=== PATIENT | female | born 1950 | race Caucasian/White ===

== ENCOUNTER → 2020-11-23 12:06 | Outpatient (CLI) | payer MEDICARE, OTHER, SELFPAY ==
--- NOTE | 2020-11-23 | DI.MRI.S_ITS ---
PROCEDURE: MR KNEE RT WO CON INDICATIONS: INTERNAL DERANGEMENT OF RIGHT KNEE TECHNIQUE: Noncontrast sagittal PD fast spin echo and T2 fast spin echo with fat saturation, sagittal 3-D FLASH with fat saturation; coronal T1 spin echo and PD fast spin echo with fat saturation, and axial PD fast spin echo with fat saturation through the knee. COMPARISON: [facility], MR, LOWER EXTREM. JNT WO CONTRAST, 08/12/2009, 11:25. FINDINGS: Image quality: Excellent. Menisci: There is a horizontal oblique signal at the junction of the posterior horn and body of the medial meniscus extending to the middle third of the tibial articular surface that is less specific in the postsurgical setting and may represent fibrovascular granulation tissue or a small tear. There is a mildly diminutive appearance of the medial meniscal body. The lateral meniscus is intact. Cruciate ligaments: There is chronic complete tearing of the anterior cruciate ligament. The posterior cruciate ligament is intact. Medial structures: The medial collateral ligament appears intact. The semimembranosus tendon insertions and meniscocapsular junction appear intact. Visualized portions of the pes anserinus tendons appear normal. No abnormal bursal fluid. Lateral structures: The lateral collateral ligament, long and short heads of the biceps femoris tendon appear intact. The popliteus tendon appears intact. No signs of posterolateral corner injury. Iliotibial band appears normal. Anterior structures: There is borderline patella alisha. The distal quadriceps tendon is intact. No femoral trochlear dysplasia or ventral trochlear prominence. Mild scarring is seen in Hoffa's fat pad. Bones and cartilage: Trabecular bone injury is seen at the posterior aspect of the lateral tibial plateau with mild depression of the far posterior articular surface, compatible with a subacute to chronic mildly impacted fracture. There is mild partial-thickness cartilage thinning in the weight-bearing portion of the medial femorotibial compartment. High-grade and likely full-thickness cartilage loss is seen in the posterior portion of the lateral tibial plateau adjacent to the impaction injury. No focal cartilage defect is seen in the anterior compartment. Joint space: A small joint effusion is present. There is a trace medial popliteal cyst. A small lobulated ganglion cyst is seen adjacent to the origin of the lateral head of the gastrocnemius muscle. IMPRESSION: 1. Mildly impacted, likely subacute fracture of the posterior aspect of the lateral tibial plateau with mild surrounding trabecular bone injury. 2. 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 3. Probable partial medial meniscectomy with linear hyperintense signal at the junction of the posterior horn and body that may represent fibrovascular granulation tissue or a small horizontal oblique tear. 4. Small joint effusion. Dictated by: Sean Killian M.D. on 11/23/2020 at 12:50 Approved by: Sean Killian M.D. on 11/23/2020 at 13:03
== END ==
PROVIDERS: Family Provider Family Medicine; PCP Family Medicine; Referring Provider Family Medicine; Visit Provider Family Medicine
DX: M23.91 Unspecified internal derangement of right knee (principal); S82.141A Displaced bicondylar fracture of right tibia, initial encounter for closed fracture; S83.511A Sprain of anterior cruciate ligament of right knee, initial encounter; M25.461 Effusion, right knee; X58.XXXA Exposure to other specified factors, initial encounter
CPT/HCPCS: 73721

== ENCOUNTER → 2022-03-21 15:59 | Outpatient (CLI) | payer MEDICARE, OTHER, SELFPAY ==
--- NOTE | 2022-03-21 16:02 | DI.MRI.S_ITS ---
PROCEDURE: MR HIP LT WO CON INDICATIONS: Pain in left hip. Left leg weakness TECHNIQUE: Noncontrast coronal T1 spin echo and STIR through the bony pelvis. Coronal and axial T2 fast spin echo with fat saturation, sagittal T1 spin echo, and oblique axial T2 fast spin echo with fat saturation through the hip. COMPARISON: None. FINDINGS: Image quality: Excellent. Bones and joints: Moderate left hip joint osteoarthritic changes are seen with significant superior joint space narrowing, extensive subchondral sclerosis and small cyst formation and lateral marginal osteophyte formation . Mild prominence of right superior femoral head neck junction is noted with subcortical cystic area concerning for cam type femoral acetabular impingement. No intraosseous lesions or fractures. No avascular necrosis of the femoral heads. The visualized lower lumbar spine appears normally aligned. Tendons and ligaments: The gluteus medius and minimus tendinosis at their insertion on greater trochanter is seen, without associated muscle atrophy. The nearby proximal iliotibial band also appears intact. The iliopsoas tendon appears intact, without adjacent bursal fluid collections or evidence for impingement syndrome. The origin of the hamstring tendon is intact at the ischial tuberosity, as well as the associated sacrotuberous ligament. The straight and reflected heads of the rectus femoris muscle origin appear intact, as well as the conjoint tendon. The ligamentum teres appears intact where visualized. Labrum and cartilage: Diffuse thinning of articulating cartilages in femoral head is seen. Extensive superior and anterior left hip labral tear is noted with adjacent perilabral cyst measures up to 1.1 x 0.6 cm in size. The alpha angle of the femur is within normal limits at less than 55 degrees. Soft tissues: Visualized muscles demonstrate normal bulk and internal signal. Quadratus femoris muscle demonstrates no internal edema to suggest ischiofemoral impingement. The proximal sciatic neurovascular bundle appears normal adjacent to the hamstring tendons. No free pelvic fluid. Bladder wall thickness is normal. Genitourinary structures and bowel loops appear normal where visualized. IMPRESSION: 1. Moderate left hip joint osteoarthritis. No fracture or dislocation. No evidence of avascular necrosis of femoral head. 2. Tendinosis involving distal left gluteus medius and minimus at their insertion on greater trochanter. No other muscle or tendon signal abnormality. 3. Suggestion of extensive superior anterior left hip labral tear with adjacent perilabral cyst as above. Dictated by: Baldo Palafox M.D. on 03/21/2022 at 17:09 Approved by: Baldo Palafox M.D. on 03/21/2022 at 17:13
== END ==
PROVIDERS: Family Provider Family Medicine; PCP Family Medicine; Referring Provider Family Medicine; Visit Provider Family Medicine
DX: S73.192A Other sprain of left hip, initial encounter (principal); M16.12 Unilateral primary osteoarthritis, left hip; M25.552 Pain in left hip
CPT/HCPCS: 73721

== ENCOUNTER → 2022-07-11 11:11 | Outpatient (CLI) | payer MEDICARE, OTHER, SELFPAY ==
[2022-07-11 11:47] LABS: COVID19 -Nasal RAPID Negative (Negative)
== END ==
PROVIDERS: Family Provider Family Medicine; PCP Family Medicine; Referring Provider Orthopaedic Surgery; Visit Provider Orthopaedic Surgery
DX: Z20.822 Contact with and (suspected) exposure to COVID-19 (principal)
CPT/HCPCS: 36415; 87635; C9803

== ENCOUNTER 2022-07-12 06:00 | Day surgery (SDC) | payer MEDICARE, OTHER, SELFPAY ==
[2022-07-04 08:57] VITALS: BMI 21.4
[2022-07-12] VITALS (15 sets, daily range): BP systolic 90–141; BP diastolic 56–78; PULSE 57–80; RESP 16–26; TEMP 35.1–36.6; O2SAT 97–100; BMI 21.4
--- NOTE | 2022-07-12 06:41 | DI.RAD.S_ITS ---
PROCEDURE: XR HIP W PEL IF DONE LT 2V INDICATIONS: prosthesis placement TECHNIQUE: 4 low resolution intraoperative fluoroscopic spot films were obtained COMPARISON: [facility], [place], XR HIP W PEL IF DONE LT 2V, 07/12/2022, 10:51. [facility] ([place]), [place], XR HIP W PEL IF DONE BHARATH 3TO4V, 12/16/2021, 15:04. FINDINGS: Low resolution intraoperative fluoroscopic spot films show total left hip arthroplasty components in expected position IMPRESSION: Fluoroscopic guidance Approved by: Rufus Gerber M.D. on 07/12/2022 at 11:21
[2022-07-12] MEDS: ACETAMINOPHEN 325 MG TABLET 975 MG PO (07:05)
[2022-07-12] MEDS: PREGABALIN 75 MG CAPSULE PO (07:10)
[2022-07-12] MEDS: CELECOXIB 200 MG CAPSULE PO (07:10)
[2022-07-12] MEDS: VANCOMYCIN 1,000 MG/200 ML PIGGYBACK 200 MG IV (07:11)
--- NOTE | 2022-07-12 07:41 | P.OP_ITS ---
Procedure & Clinicians Procedure: Left total hip arthroplasty anterior approach Same procedure as scheduled: Yes Indications: The patient has had progressively worsening left hip pain with radiographic changes consistent with arthritis. Non-operative management has failed and the patient has requested total hip replacement. The risks, benefits and alternatives to surgery were discussed with the patient prior to proceeding. Risks discussed included, but were not limited to, failure to relieve pain, leg length discrepancy, dislocation, stiffness, infection, nerve damage, deep venous thrombosis, pulmonary embolism, stroke, coma, heart attack, permanent paralysis and , as well as the potential need for eventual revision of the prosthetic. Surgeon: Darcy Coelho Supervisor In Charge: Jossy Mercado Anesthesia Type: Spinal Operative Notes Findings: Severe left hip osteoarthritis, adequate bone and adequate stability Closure Type: primary Specimen(s): none sent Prosthetic devices, grafts, tissues, transplants, or devices: Coelho and nephew R3 54 mm cup, anthology standard offset size 4, 36 x -3 Oxinium head, neutral poly liner Estimated Blood Loss (mL): 250 Blood products transfused: none Procedure in detail: The patient was brought to the operating room. Patient was carefully positioned in the supine position. Time-out was performed and antibiotics were given. Anesthesia was induced. She was positioned in the on the table in order to allow hyperextension of the hip. The left lower extremity was prepped and draped in a standard sterile fashion. An anterior left hip incision was made 1 fingerbreadth lateral to the anterior superior iliac spine and extended distally towards the greater trochanter. Dissection was carried out through skin and subcutaneous tissues. Superficial hemostasis was achieved. The fascia over the tensor fascia juwan was defined and incised with a knife. Two Allis clamps were used to grasp the fascia. Tensor fascia juwan was retracted laterally. A gelpi retractor was placed. Dissection was carried out down along the neck. The circumflex vessels were carefully identified and cauterized with the Aqua Mantis. There was good visualization of the femoral neck. A Cobra was placed superior to the neck and the gluteus fibers were carefully stripped from that superior aspect of the capsule. A 2nd retractor was placed along the inferior aspect of the neck. The rectus insertion along the capsule was partially released. A 3rd retractor that was then gently placed over the rim of the acetabulum under the rectus. Capsule was carefully incised and released from the intertrochanteric line circumferentially superior to the mid sagittal line and inferiorly to the mid sagittal line until the lesser trochanter was palpable. A tag stitch was placed both in the superior and inferior limb of the capsular insertion. Along the acetabulum capsule was also released up to the mid sagittal 12:00 position. A portion of the labrum was resected. A saw was used to perform an osteotomy at the level of the intertrochanteric line and the junction of the superior femoral neck leaving approximately 1 finger breath of residual inferior neck above the lesser trochanter. A 2nd cut was made along the femoral neck at the base of the head and a napkin ring of neck was removed. Corkscrew was placed in the femoral head and the head was removed without difficulty. Retractors were then repositioned around the acetabulum. Residual labrum was resected and additional osteophytes were removed . A reamer that was 4 mm below the templated size was placed by hand in the acetabulum and it was reamed to centralize the acetabulum. It was then reamed up to 2 under the templated size and fluoroscopy was brought in to confirm the position of the reaming and depth of reaming. I reamed 1 under the anticipated size. A trial cup was placed and noted that it was appropriately sized and fluoroscopy confirmed position and depth. The component was open and inserted without difficulty fluoroscopic imaging was used to confirm that the cup had been adequately seated and was well positioned. It was further stabilized with a screw. Neutral poly liner was placed. The cup was tested and noted to be stable. Attention was then directed to the femur. The femur was gently hyperextended additional capsular release was performed as needed in order to allow adequate visualization of the proximal femur with elevation of the femur. Patient was placed in a hyperextended slightly adducted position with maximum external rotation. Box osteotome was used to check for any residual neck as well as sclerotic bone along the trochanter. [place] pepper was placed in the femur. Additional broaching was performed. Canal finder was used to determine the alignment of the canal and position. Size 1 broach was placed. The canal was then appropriately broached up to the templated size as long as there was adequ ate stability of the broach and serial advancement of the broach without excessive impingement. Specific attention was directed at avoiding varus attempting to direct the distal aspect of the broach more anteriorly and avoiding excessive anteversion. Trial reduction showed acceptable range of motion, good stability, no posterior impingement, protestant of leg length and appropriate lateral shuck. I also hyperflexed the hip and checked that there was no impingement anteriorly and there was good stability with flexion, adduction and internal rotation. Marcaine and Exparel were injected. The stem was placed without difficulty. Repeat trial reduction and x-ray showed acceptable overall position, length, and no evidence of the femoral fracture. Final head was placed. Wound was meticulous ly irrigated with normal saline. The hip was reduced and additional Exparel and Marcaine were injected. The capsule was closed with interrupted nonabsorbable sutures. The fascia of the tensor was closed with interrupted and running Vicryl. No drain was placed. Any tensor fascia ujwan muscle that appeared to be contused or injured which was a minimal amount was carefully resected. Capsule around the tensor was injected with Exparel and Marcaine. The skin was closed with barbed stitches for the subcutaneous tissue and skin. We also used surgical glue. The wound was dressed sterilely. Brief Betadine soak was also used and was meticulously irrigated with normal saline. Patient was transferred to recovery room in satisfactory condition. Complications: none Post-operative Condition: stable Disposition: Acute Care Plan for aftercare: The patient will be maintained on a standard total hip replacement protocol with weight bearing as tolerated and anterior hip precautions. The patient will receive Aspirin and sequential compression devices for DVT prophylaxis. The patient will be discharged home when safe for the home environment.
--- NOTE | 2022-07-12 07:41 | PM.PREOP ---
Pre-operative Note COVID-19 COVID-19 status: Negative Interval Note History & Physical reviewed/Exam performed by Physician: Yes Changes to H&P: No
[2022-07-12] MEDS: CEFAZOLIN 2 GM/100 ML PREMIX 100 ML IV ×3 (07:50→23:58)
[2022-07-12] MEDS: TRANEXAMIC ACID 1,000 MG VIAL 1000 MG INJ ×2 (08:15→10:02)
--- NOTE | 2022-07-12 08:31 | SUR.OPER ---
Supine on padded [place] table with bilateral legs secured in padded positioning boots and suspended in positioning spars, operative leg in traction per surgeon. Head on one pillow. Arm on non-operative side secured on padded armboard <90 degrees abduction. Arm on operative side padded and resting across chest then secured with tape over sheet. Padded perineal post in place per surgeon.
[2022-07-12] MEDS: BUPIVACAINE LIPOSOME 266 MG/20 ML VIAL INJ (08:37)
[2022-07-12] MEDS: BUPIVACAINE 0.5% (PF) VIAL 30 ML INJ (08:39)
[2022-07-12] MEDS: BUPIVACAINE 0.25% (PF) 60 ML, EPINEPHrine 0.3 MG INJ (08:40)
[2022-07-12] MEDS: LACTATED RINGERS 1,000 ML 42 ML IV (10:02)
[2022-07-12] MEDS: HYDROMORPHONE 2 MG INJ IV ×2 (10:46→11:03)
[2022-07-12] MEDS: OXYCODONE IR 5 MG TABLET PO ×3 (11:05→18:36)
--- NOTE | 2022-07-12 11:30 | DI.RAD.S_ITS ---
PROCEDURE: XR HIP W PEL IF DONE LT 2V INDICATIONS: LEFT ANTERIOR TOTAL HIP TECHNIQUE: 2 view(s) of the hip acquired. COMPARISON: [facility], [place], XR HIP W PEL IF DONE LT 2V, 07/12/2022, 9:31. [facility] ([place]), CR, XR HIP W PEL IF DONE BHARATH 3TO4V, 12/16/2021, 15:04. FINDINGS: Bones: Patient is status post left hip arthroplasty, with hardware components in expected positions. The hip joint appears congruent. The visualized bony structures appear intact. Soft tissues: Overlying postoperative changes are noted. No suspicious soft tissue densities. IMPRESSION: Status post left hip arthroplasty. Dictated by: Unique Bullard M.D. on 07/12/2022 at 12:52 Approved by: Unique Bullard M.D. on 07/12/2022 at 12:52
--- NOTE | 2022-07-12 11:33 | SUR.PHASEI ---
Report called to JARROD Jeter.
[2022-07-12] MEDS: LACTATED RINGERS 1,000 ML 125 ML IV ×2 (12:25→20:32)
[2022-07-12] MEDS: ONDANSETRON 4 MG ODT PO (12:28)
[2022-07-12] MEDS: ACETAMINOPHEN 325 MG TABLET 650 MG PO ×3 (12:28→23:58)
[2022-07-12] MEDS: IBUPROFEN 400 MG TABLET PO ×3 (12:54→23:58)
--- NOTE | 2022-07-12 14:40 | PT.IIE ---
Current Diagnoses Unilateral primary osteoarthritis, left hip (07/12/22) Surgery Performed Operation Date: 07/12/22 07:45 Actual Procedures p Total Hip Arthroplasty/Anterior Approach(Left) - Darcy Coelho MD Surgical History (Last Updated 07/04/22 @ 09:14 by Quin Espinoza, RN) History of colonoscopy with polypectomy History of orthopedic surgery (2004) Hx of arthroscopy of right knee (2008) Hx of discectomy (1994) Hx of foot surgery (1998) Hx of foot surgery (2012) Hx of foot surgery (2017) Medical History (Last Reviewed 07/12/22 @ 06:59 by Vineet Santa RN) Breast cancer screening Encounter for hepatitis C screening test for low risk patient HLD (hyperlipidemia) HTN (hypertension) Osteoarthritis Post-menopausal atrophic vaginitis Physical Therapy Inpatient Evaluation/Re-Eval M1 PT/OT-IP Prior Functional Status Start: 07/12/22 15:31 Freq: NEEDED Status: Active Protocol: Document 07/12/22 14:40 AB (Rec: 07/12/22 15:[email or web address] Medical Review Prior Functional Status Medical History Reviewed Yes Communication able to make needs known Mobility and Gait pt stated that she is independent with all mobilities and ambulation wihtout AD Social History Household Members spouse Living Arrangements House Number of Floors (Floors) One Floor Number of Stairs To Enter/Railing? 2 steps without rails to enter Home Environment Standard Height Toilet,Tub/ Shower Home Equipment Front Wheel Walker,Straight Cane,Raised Toilet Seat w/ Armrests,Shower Seat without Backrest,Hand Held Shower,Grab Bars In Shower M2 PT-IP Current Condition Start: 07/12/22 15:31 Freq: NEEDED Status: Active Protocol: Document 07/12/22 14:40 AB (Rec: 07/12/22 15:43 AB [id number]) Physical Therapy Current Condition Current Condition Evaluation Date 07/12/22 Treatment Diagnosis s/p L TABITHA anterior approach; difficulty in walking Onset Date 07/12/22 M3 PT-IP Subjective Start: 07/12/22 15:31 Freq: NEEDED Status: Active Protocol: Document 07/12/22 14:40 AB (Rec: 07/12/22 15:43 AB [id number]) Subjective Physical Therapy Visit Type Type Initial Evaluation Visit Start Time 14:40 Visit Stop Time 15:30 Total Visit Minutes 50 Number of FAMILY LAW ATTORNEY Visits 0 Physical Therapy Visit Comments Patient Comments pt is agreeable to do PT; c/o nausea M4 PT-IP Mobility and Gait Start: 07/12/22 15:31 Freq: NEEDED Status: Active Protocol: Document 07/12/22 14:40 AB (Rec: 07/12/22 15:43 AB [id number]) PT-Bed Mobility Assessment Supine to Sit Supine to Sit Standby Assistance Sit to Supine Sit to Supine Standby Assistance PT-Transfer Assessment Sit to and From Stand Sit to and from Stand Contact Guard Assistance, Minimal Assistance,1 Person Assistance,Use of Upper Extremities Equipment Transfer Assistive Device Gait Belt,Front Wheeled Walker Orthotic/Prosthetic Devices or Brace: No Transfers Transfer Destination Bed Transfer Technique Stand Step Pivot Transfer Ability Level of Assist Contact Guard Assistance, Minimal Assistance,1 Person Assistance,Use of Upper Extremities Comments Mobility Comments pt c/o nausea with (+) emesis. nurse aware. BP: 136/68. nurse gave pt medication for nausea. educated pt on anterior hip precautions and pt able to recall. completed supine to sit SBA. able to sit on EOB SBA. completed sit to stand CGA to min A and ambulated in room using FWW ~ 40 ft CGA to min A. pt requested to use the toilet but wants to use bedside commode instead due to c/o nausea. positioned bedside commode. assisted with brief management. completed sit to stand from bedside commode CGA to min A and cues. pt requested to go back to bed and completed step transfer to bed using fWW CGA. completed sit to supine SBA. positioned pt in bed. call light and table placed within reach. caregiver training set up tomorrow at 9 am. Gait Assessment Gait Gait Assistance Required: Contact Guard Assist,Minimum Assistance,1 Person Assist Distance (Feet) 40 Able to Maintain Weight Bearing Status Yes During Gait Assistive Devices Assistive Device Gait Belt,Front Wheeled Walker Orthotic/Prosthetic Devices or Brace: No Gait Deviations General Gait Pattern Antalgic,Decreased Stride Length,Decreased Feet Clearance,Step-to Gait Factors Limiting Gait Function Factors Limiting Gait Function Decreased Activity Tolerance, Decreased Strength,Limited Range of Motion,Pain,Poor Balance,Poor Safety Awareness PT-Balance Assessment Sitting Balance and Reactions Static Sitting Balance Ability Good Dynamic Sitting Balance Ability Good Standing Balance and Reactions Static Standing Balance Ability Fair Dynamic Standing Balance Ability Fair Device Used FWW M5 PT-IP Objective Assessments Start: 07/12/22 15:31 Freq: NEEDED Status: Active Protocol: Document 07/12/22 14:40 AB (Rec: 07/12/22 15:43 AB [email or web address]) Orientation Orientation/Cognition Level of Alertness Alert Orientation Name,Place,Situation Language Function Ability No Deficits Noted Safety Awareness Decreased Safety Awareness Gross Range of Motion Lower Extremity ROM Assessment Within Functional Limits Strength Lower Extremity Strength Assessment Within Functional Limits Coordination Assessment Gross Coordination Gross Coordination WNL Sensation Assessment Sensation Gross Sensation WNL Muscle Tone Muscle Tone WNL Yes M6 PT-IP Treatment Start: 07/12/22 15:31 Freq: NEEDED Status: Active Protocol: Document 07/12/22 14:40 AB (Rec: 07/12/22 15:43 AB [email or web address]) Physical Therapy Treatment Education Education Provided Precautions M7 PT-IP Assessment and Plan Start: 07/12/22 15:31 Freq: NEEDED Status: Active Protocol: Document 07/12/22 14:40 AB (Rec: 07/12/22 15:43 AB [email or web address]) PT Summary Assessment and Plan Potential Rehabilitation Potential Good Status of Condition at Evaluation Evolving Summary Impairments Pain,ROM,Strength,Balance, Coordination,Sensation,Tone, Cognition,Bed Mobility, Transfers,Gait,Activity Tolerance Assessment Summary pt s/p L TABITHA anterior approach and just had surgery this morning. pt with c/o nausea affecting activity tolerance. BP: 136/68. pt requiring CGA to min A with mobility using FWW. caregiver training set up for tomorrow at 9 am. will continue to assess progress. Goals Bed Mobility Goal Independent Transfer Goal Independent,Front Wheeled Walker Gait Goal Independent,Front Wheel Walker Gait Distance 300 Other Goals up/down 2 steps using SPC/CHIEF PROGRAM OFFICER CGA Days to Meet Goals 5 Frequency of Treatment Frequency Of Treatment Twice a Day Treatment Plan Physical Therapy Treatment Plan Bed Mobility Training,Transfer Training,Gait Training, Therapeutic Exercise,Balance Retraining,Post Op Education, Discharge Planning,Hot or Cold Pack,Neuromuscular Re-ed, Coordination Retraining,Manual Therapy Other Recommendations and Next Treatment Caregiver trainin07/13/22 @ [facility] 9 am Precautions Anterior Hip Precautions No Hip Extension,No Hip External Rotation Weight Bearing Status Weight Bearing Status Weight Bear as Tolerated Allowed Weight Bearing Amount (enter % LLE WBAT or #) (%) Recommendations To Nursing Amount of Assist Needed 1 Person Assist Discharge Recommendations PT Discharge Recommendations Home with Assistance, Outpatient PT Transportation Needs at Discharge Private Vehicle
[2022-07-12] MEDS: ONDANSETRON 4 MG/2 ML INJ IV ×2 (14:54→18:29)
--- NOTE | 2022-07-12 19:46 | PC.NURSE ---
Pt arrived from PACU this a.m. at 1145. She is A&Ox3, VSS, afebrile. She reports mild nausea, and although given prn zofran with medications, she has x2 episodes of emesis this evening. She is however able to work with PT and tolerate a small amount of dinner. She reports pain to L hip tolerable at 4/10 this shift. She has +CMS to BLE's and full sensation. Continuous monitoring. Aquacel to L hip C/D/I, LR at 125ml/hr.
[2022-07-12] MEDS: DOCUSATE 100 MG CAPSULE PO (20:29)
[2022-07-12] MEDS: ASPIRIN EC 81 MG TABLET PO (20:29)
[2022-07-12] MEDS: ATORVASTATIN 20 MG TABLET 10 MG PO (20:29)
[2022-07-12] MEDS: VALSARTAN 80 MG TABLET 40 MG PO (20:30)
--- NOTE | 2022-07-12 22:14 | PC.NURSE ---
Patient is alert and oriented. Breath sounds CTA with RA sat of 99%. HRR. Has had post-op nausea and medicated around 1830 with Zofran and denied nausea at time of assessment. BT present but has not yet passed flatus. Voiding on BSC and denies dysuria. Is able to move herself in bed. Assisted to BSC with walker and 1 assist; adheres to anterior hip precautions. CMS is intact except for not having full motion in left leg. Aquacel dressing is CDI. Wearing bilateral calf SCD's. States pain is 3-4/10 and tolerable. Fall risk score is moderate and bed alarm is activated.
[2022-07-13 01:00] VITALS: BP 101/51; PULSE 61; RESP 18; TEMP 36.2; O2SAT 95
[2022-07-13] MEDS: LACTATED RINGERS 1,000 ML 125 ML IV (04:48)
[2022-07-13 05:00] VITALS: BP 95/46; PULSE 67; RESP 18; TEMP 36.4; O2SAT 99
[2022-07-13 05:42] LABS: Hematocrit 30.6 % (36-46); Hemoglobin 10.4 g/dL (12.0-16.0)
[2022-07-13] MEDS: IBUPROFEN 400 MG TABLET PO ×2 (06:11→11:18)
[2022-07-13] MEDS: ACETAMINOPHEN 325 MG TABLET 650 MG PO ×2 (06:11→11:18)
--- NOTE | 2022-07-13 07:36 | PM.DS.1 ---
History of Present Illness History of Present Illness Date Patient Seen: 07/13/22 Time Patient Seen: 07:36 Chief complaint: Left total Hip Athroplasty/ Anterior Approach Narrative: Procedure & Clinicians Procedure: Left total hip arthroplasty anterior approach Same procedure as scheduled: Yes Indications: The patient has had progressively worsening left hip pain with radiographic changes consistent with arthritis. Non-operative management has failed and the patient has requested total hip replacement. The risks, benefits and alternatives to surgery were discussed with the patient prior to proceeding. Risks discussed included, but were not limited to, failure to relieve pain, leg length discrepancy, dislocation, stiffness, infection, nerve damage, deep venous thrombosis, pulmonary embolism, stroke, coma, heart attack, permanent paralysis and , as well as the potential need for eventual revision of the prosthetic. Surgeon: Darcy Coelho Garnett Machine Operator Helper: Jossy Mercado Anesthesia Type: Spinal Operative Notes Findings: Severe left hip osteoarthritis, adequate bone and adequate stability Closure Type: primary Specimen(s): none sent Prosthetic devices, grafts, tissues, transplants, or devices: Coelho and nephew R3 54 mm cup, anthology standard offset size 4, 36 x -3 Oxinium head, neutral poly liner Estimated Blood Loss (mL): 250 Blood products transfused: none Discharge Providers Provider Discharge Date: 07/13/22 Primary care physician: Josie Elizondo MD Consults: 07/12/22 06:41 Consult to Anesthesiology Routine Comment: Consulting Provider: Anesthesiologist Reason for consultation: Regional block for post operative pain control 07/12/22 11:58 Consult to Discharge Planning Routine Comment: Consult to Physical Therapy Evaluate & Treat Comment: Physician Instructions: post op TABITHA protocol Consult to Respiratory Therapy Evaluate & Treat Comment: Physician Instructions: Evaluate and treat Discharge provider: Shey Alfaro PA-C Summary Hospital Course Discharge Diagnosis: s/p L TABITHA Hospital Course: Ms Marcial's hospital course was unremarkable. On POD# 1, she was feeling well and wanted to go home. She was eating and voiding without difficulty. She was evaluated by PT prior to discharge. Exam Vital Signs (past 8 hours): - 07/13/22 01:00 07/13/22 05:00 Temperature 97.1 F L 97.6 F Pulse Rate 61 67 Respiratory Rate 18 18 Blood Pressure 101/51 L 95/46 L Pulse Oximetry 95 99 Oxygen Flow Rate 0 0 Oxygen Delivery Method Room Air Oxygen Flow Rate 0 Narrative Exam Narrative: 5/5 strength in hip flexors, quadriceps, hamstrings, DF, PF, EHL on left. Sensation to light touch intact in BLE. Calves soft, compressible, nontender and without palpable cords or masses. Objective Labs Result Diagrams: 07/13/22 04:40 Labs: Laboratory Results - last 24 hr 07/13/22 04:40 Hgb 10.4 L Hct 30.6 L PFSH Medical History Breast cancer screening Encounter for hepatitis C screening test for low risk patient HLD (hyperlipidemia) HTN (hypertension) Osteoarthritis Post-menopausal atrophic vaginitis Surgical History (Updated 07/13/22 @ 07:39 by Shey Alfaro PASundayC) History of colonoscopy with polypectomy History of orthopedic surgery (2004) Hx of arthroscopy of right knee (2008) Hx of discectomy (1994) Hx of foot surgery (1998) Hx of foot surgery (2012) Hx of foot surgery (2017) Social History household members: spouse Smoking Status: Never smoker alcohol intake: current Discharge Assessment & Plan Assessment and Plan Assessment: s/p left total hip arthoplasty, anterior approach Plan of Treatment: D/c home. WBAT LLE, anterior hip precautions. Multimodal pain control, ASA 81mg BID x 6 weeks for VTE prophylaxis. Discharge Plan Discharge Plan Patient Disposition: Home Discharge orders & Medications Discharge Orders: Discharge (Order); Ordered 07/13/22 Ordered By: Shey Alfaro Prescriptions: New aspirin 81 mg Tablet,Delayed Release (Dr/Ec) 81 mg PO BID Qty: 90 0RF docusate sodium 100 mg Capsule 100 mg PO BID Qty: 60 2RF ibuprofen 400 mg Tablet 400 mg PO Q6HR Qty: 120 0RF oxycodone 5 mg Tablet 5 mg PO Q4-6H PRN (Reason: pain, severe) Qty: 60 0RF Continued acetaminophen 500 mg Tablet 1,000 mg PO Q6H PRN (Reason: Pain) estradiol 10 mcg tablet 10 mcg vaginal .1XW multivitamin Tablet 1 tab PO DAILY triamcinolone acetonide 0.1 % ointment 1 applic topical DAILY PRN (Reason: Skin Irritation) valsartan 40 mg tablet 40 mg PO BEDTIME atorvastatin 10 mg tablet 10 mg PO DAILY Follow up/Referrals: Josie Elizondo MD [Primary Care Provider] - Darcy Coelho MD [Physician] - As previously scheduled (Follow up w/ Dr Coelho on 07/27/2022 @ 2:00 pm at [facility] office in [place].) Diet/Activity/Treatments Diet: Diet as Tolerated Activity: WBAT to left leg. Anterior hip precautions. Cold/Heat Therapy: Ice to hip as needed for pain. Skin/Wound/Dressing Care Report to your healthcare provider any signs of infection, such as:: chills, fever, night sweats, unusual drainage and unusual redness Dressing: May shower. Leave Aquacel dressing in place until follow up appointment. No bathing or otherwise soaking incision. Visit Report/Discharge Packet Instructions: DI for Hip Replacement, Oxycodone Stand Alone Forms: Surgery Discharge Discharge Data Primary Care Provider: Josie Elizondo Attending Provider: Darcy Coelho
[2022-07-13] MEDS: OXYCODONE IR 5 MG TABLET PO (09:01)
[2022-07-13] MEDS: MULTIVITAMIN 1 TABLET 1 TAB PO (09:01)
[2022-07-13] MEDS: DOCUSATE 100 MG CAPSULE PO (09:01)
[2022-07-13] MEDS: polyethylene glycoL 3350 17 GM POWD.PACK PO (09:03)
[2022-07-13 09:05] VITALS: BP 108/49; PULSE 63; RESP 17; TEMP 36.3; O2SAT 100
--- NOTE | 2022-07-13 09:12 | CM.DANOTE ---
DCP Assessment: Payor: Medicare & [employer] PCP: Josie Elizondo MD Pt is a 72 y.o. F who presented to the hospital for a planned left hip surgery on 07/12/22. Pt tolerated surgery with no complications. Pt admitted to the floor for further management and evaluation of surgical procedure. DCP met with pt this morning to discuss discharge planning needs. Pt sitting up in the bed and spouse, Easton, at the bedside. Pt states she lives in a single story house on [facility] with her . Pt states that she is independent at baseline and does not use any DMEs but owns a walker. Pt states that she still drives POV but wont be driving following surgery recovery. Pt denies home health use in the past. Pt does not think she needs any resources at this time. Pt is to have caregiver training @ 0900 this morning and if cleared, she can discharge home. Pt requesting priority ferry pass as she [place] on [address]. Pt wanting to catch the 1220 ferry if she [place]. DCP does not identify any discharge needs at this time. White board updated and will continue to monitor. DCP verbalized to the director of front office to start paperwork for priority ferry pass. DCP talked with PT and asked if once cleared to let the director of front office know so that they could send the paperwork to the ferry. P: Pt to discharge home today via spouse POV if cleared by PT caregiver training. [place] pass initiated. Bertha Maguire RN/KEMI Discharge Planning/Care Management CM Discharge Assessment Start: 07/13/22 09:07 Freq: Status: Active Protocol: Document 07/13/22 09:07 ROSS (Rec: 07/13/22 09:08 ROSS [id number]) Discharge Planning Assessment Assigned Folded Towel Machine Operator Bertha Maguire RN/KEMI Advance Directives? No Advance Directives on File No History Provided By Patient Prior Living Arrangements House Household Members spouse Type of transporation used prior to Drives own vehicle admit Independent with ADL's Yes Is patient alert and oriented? Yes Caregiver for Another No DME Already Rented / Owned FWW / Walker Discharge Plan Home Referrals Initiated None needed Additional Comment At this time. Whiteboard Updated in Patient Room with Yes name and ext. # of Folded Towel Machine Operator Comment Instructed to call Review Status In Process Please Provide Date Initial DC 07/13/22 Assessment Was Performed Next Review Type Continued Stay Review Pre-Anesthesia Assessment Start: 07/04/22 08:57 Freq: Status: Complete Protocol: Document 07/04/22 08:57 [facility] (Rec: 07/04/22 09:28 [facility] [id number]) Pre-Anesthesia Assessment Preferred Name Kellee Patient Information Reviewed Via Phone Assessment Assessment Completed With Patient Diagnostic Results BMP/CMP,CBC,EKG,Urinalysis Comment Outside labs/ECG scanned, COVID screen @ [facility] 07/11/22 Primary Care Provider Josie Elizondo Seen Specialist in Last 12 Months Yes Specialist Seen Orthopedist Primary Language Haitian Medical Planner Required No Height 165.1 cm Weight 58.513 kg Body Mass Index (BMI) 21.4 Hearing Ability Normal Visual Assist Glasses Dentition Type Teeth, Natural Present Barriers to Learning None Hx Anesthesia Reactions Yes: PONV, Black holes afterward with some surgeries Hx Family Anesthesia Reaction No Hx Malignant Hyperthermia No Hx Blood Transfusions No Anesthesia Review Requested No alcohol intake current alcohol intake frequency holidays/special occasions only Smoking Status Never smoker Substance Use Type does not use Pain Present Pain Reported Musculoskeletal Symptoms Abnormal Gait,Difficulty Walking,Joint Pain History of Falling (Recent or History of No ) Patient is completely paralyzed or No completely immobile Mental Status Oriented to own ability Is patient on oxygen? No Does patient have TERAN/SOB No Hx Sleep Apnea No Currently Taking a Beta Andreas No Can You Climb a Flight of Stairs Without Yes SOB Hx Chest Pain No Hx SOB No Hx Syncope or Dizziness No Anti-Coagulant Therapy No Has a Wellness Program Administrator No Cardiac Testing No Hx Pacemaker/ICD No Pacemaker Rep Required? No Diet Type At Home Regular,Low Carb dysphagia No Bladder Pattern Urgency Urinary Catheter Present No Hx Urinary Self Catheterization No Diabetes No Patient No Lactating No Hx Drug Resistant Organism No Presence of External or Internal Medical Yes: Pinning to left foot toe Devices Have you had any close contact with No someone diagnosed with COVID-19? Received a COVID vaccine? Yes Received all doses? Yes Marital Status Lives With spouse Prior Living Arrangements House Support System Spouse Patient Discharge Plan Description Return Home Comment Pt advised overnight length of stay per surgeon Additional comment Lives on [facility] Feels Safe in Current Environment Yes Been Physically Hurt or Threatened By a No Person in Current Environment Do you have thoughts of harming yourself None or others? Are you currently considering suicide? No Do you have a plan to hurt yourself or No Plan others? Do You Have Any Spiritual Beliefs That No May Affect Your HC Choices? Do You Have Any Cultural Practices That No May Affect Your HC Choices? Who Can We Speak to About Patient's Care Family, friends Identifying Code for Release of Patient Declines to issue Information Health Care Proxy/Next of Kin Easton () Health Care Proxy Emergency Contact Name Easton () Emergency Contact Advance Directives? No Power of Lorry Weigher No PAC Instructions Do not shave/clip surgical site,Durable medical equipment ,Medications to take/avoid, Nasal antibiotic,No ETOH/ petroleum product on skin DOS, NPO,Post-op transportation,Pre -surgical wash,Sturdy shoes/ comfortable clothes,Do not bring valuables and remove jewelry
--- NOTE | 2022-07-13 09:39 | PT.IPTN ---
Current Diagnoses Unilateral primary osteoarthritis, left hip (07/12/22) Presence of unspecified artificial hip joint (07/12/22) Surgery Performed Operation Date: 07/12/22 07:45 Actual Procedures p Total Hip Arthroplasty/Anterior Approach(Left) - Darcy Coelho MD Physical Therapy Treatment Note M2 PT-IP Current Condition Start: 07/12/22 15:31 Freq: NEEDED Status: Active Protocol: Document 07/12/22 14:40 AB (Rec: 07/12/22 15:43 AB [id number]) Physical Therapy Current Condition Current Condition Evaluation Date 07/12/22 Treatment Diagnosis s/p L TABITHA anterior approach; difficulty in walking Onset Date 07/12/22 M3 PT-IP Subjective Start: 07/12/22 15:31 Freq: NEEDED Status: Active Protocol: Document 07/13/22 09:08 KS (Rec: 07/13/22 11:11 KS [id number]) Subjective Physical Therapy Visit Type Type Treatment Note Visit Start Time 09:08 Visit Stop Time 09:39 Total Visit Minutes 31 Notes Spouse present for caregiver training Number of YOUTH CARE WORKER Visits 1 M4 PT-IP Mobility and Gait Start: 07/12/22 15:31 Freq: NEEDED Status: Active Protocol: Document 07/13/22 09:08 KS (Rec: 07/13/22 11:11 KS [id number]) PT-Bed Mobility Assessment Supine to Sit Supine to Sit Standby Assistance Sit to Supine Sit to Supine Standby Assistance Scooting Scooting to Edge of Bed Standby Assistance PT-Transfer Assessment Sit to and From Stand Sit to and from Stand Standby Assistance,Contact Guard Assistance,1 Person Assistance,Use of Upper Extremities Equipment Transfer Assistive Device Gait Belt,Front Wheeled Walker Orthotic/Prosthetic Devices or Brace: No Transfers Transfer Destination Bed,Wheelchair Transfer Technique Pt ambulated w/ FWW Transfer Ability Level of Assist Standby Assistance,Contact Guard Assistance,1 Person Assistance,Use of Upper Extremities Comments Mobility Comments Pt in bed upon arrival from therapy. SBA for bed mobility, able to recall precautions. Demonstrated gait belt application to pts who was able to provide assistance and CGA for sit<> stand. Pts BP 103/45 but asymptomatic. Pt ambulated to w/c in hallway CGA by . Transported pt to practice stairs in w/c for energy conservation. Pt was able to ascend/descend 3 steps w/ cane and hand hold assist by her w/ cues for sequencing . Pt and state they feel safe to perform at home. Pt ambulated remaining 30 dt from w/c to bed SBA w/ FWW. Reveiwed precautions, safety, and ther ex. Pt left in bed w/ all needs in reach. Gait Assessment Gait Gait Assistance Required: Standby Assistance,Contact Guard Assist,1 Person Assist Distance (Feet) 40 Able to Maintain Weight Bearing Status Yes During Gait Assistive Devices Assistive Device Gait Belt,Front Wheeled Walker Orthotic/Prosthetic Devices or Brace: No Gait Deviations General Gait Pattern Antalgic,Decreased Stride Length,Decreased Feet Clearance,Step-to Gait Factors Limiting Gait Function Factors Limiting Gait Function Decreased Activity Tolerance, Decreased Strength,Limited Range of Motion,Pain,Poor Balance Comments Gait Comments Pt able to ambulate ~40 ft w/ FWW SBA to CGA w/ good adherence to precautions, no LOB, denied lightheadedness. Stair Climbing Assessment Evaluation Level of Assist On Stairs Contact Guard Assistance, Minimal Assistance,1 Person Assistance Devices Stair Climbing Assistive Devices Small Base Quad Cane Technique/Endurance Stair Climbing Direction Ascend and Descend Stair Climbing Technique Step to Step Number of Steps Climbed 3 Stair Climbing Set # Repetitions (reps) 1 Comments Stair Climbing Comments Pt ascended/descended 3 steps w/ cane and providing hand hold assist and cues for sequencing. Pt and state they feel safe to perform stairs into home. PT-Balance Assessment Sitting Balance and Reactions Static Sitting Balance Ability Normal Dynamic Sitting Balance Ability Good Standing Balance and Reactions Static Standing Balance Ability Good Dynamic Standing Balance Ability Good Device Used FWW M5 PT-IP Objective Assessments Start: 07/12/22 15:31 Freq: NEEDED Status: Active Protocol: Document 07/12/22 14:40 AB (Rec: 07/12/22 15:43 AB [id number]) Orientation Orientation/Cognition Level of Alertness Alert Orientation Name,Place,Situation Language Function Ability No Deficits Noted Safety Awareness Decreased Safety Awareness Gross Range of Motion Lower Extremity ROM Assessment Within Functional Limits Strength Lower Extremity Strength Assessment Within Functional Limits Coordination Assessment Gross Coordination Gross Coordination WNL Sensation Assessment Sensation Gross Sensation WNL Muscle Tone Muscle Tone WNL Yes M6 PT-IP Treatment Start: 07/12/22 15:31 Freq: NEEDED Status: Active Protocol: Document 07/13/22 09:08 RICHARD (Rec: 07/13/22 11:11 KS [id number]) Physical Therapy Treatment Education Education Provided Precautions,Post-Op Packet, Safety M7 PT-IP Assessment and Plan Start: 07/12/22 15:31 Freq: NEEDED Status: Active Protocol: Document 07/13/22 09:08 RICHARD (Rec: 07/13/22 11:11 KS [id number]) PT Summary Assessment and Plan Potential Rehabilitation Potential Good Summary Impairments Pain,ROM,Strength,Balance, Coordination,Sensation,Tone, Cognition,Bed Mobility, Transfers,Gait,Activity Tolerance Progress Towards Goals Slow Progress due to Pain,Slow Progress due to Activity Tolerance Assessment Summary Completed caregiver training w / pts who was able to provide necessary cues and assist for bed mobility, transfers, and ambulation w/ FWW and stairs w/ cane and ORACLE ADF DEVELOPER . Pt SBA to CGA for most mobility, able to ambulate 40 ft and ascend/descend 3 steps w/ ORACLE ADF DEVELOPER and cane. Pt feels safe and ready to go home w/ assisting. She will benefit from OPPT to improve strength, stability, and activity tolerance. Goals Bed Mobility Goal Independent Transfer Goal Independent,Front Wheeled Walker Gait Goal Independent,Front Wheel Walker Gait Distance 300 Other Goals up/down 2 steps using SPC/ORACLE ADF DEVELOPER CGA Days to Meet Goals 5 Frequency of Treatment Frequency Of Treatment Twice a Day Treatment Plan Physical Therapy Treatment Plan Bed Mobility Training,Transfer Training,Gait Training, Therapeutic Exercise,Balance Retraining,Post Op Education, Discharge Planning,Hot or Cold Pack,Neuromuscular Re-ed, Coordination Retraining,Manual Therapy Precautions Anterior Hip Precautions No Hip Extension,No Hip External Rotation Weight Bearing Status Weight Bearing Status Weight Bear as Tolerated Allowed Weight Bearing Amount (enter % LLE WBAT or #) (%) Recommendations To Nursing Amount of Assist Needed 1 Person Assist Discharge Recommendations PT Discharge Recommendations Home with Assistance, Outpatient PT Transportation Needs at Discharge Private Vehicle
[2022-07-13] MEDS: ASPIRIN EC 81 MG TABLET PO (10:05)
--- NOTE | 2022-07-13 11:18 | PC.NURSE ---
Day shift: Paperwork signed and all questions answered. Pt has all personal belongings. scripts sent to Pt's pharmacy on [address]. Spouse in room for teachings. Aquacel remains CDI. CMS intact. Steady on feet w/ FWW. Pt given Tylenol and Ibuprofen per JAN just prior to d/c to help with pain. Left unit via WC at approx 1125. Taken to car by SUJATHA Friedman. Pt's Spouse is driving them home. They have [facility] boarding pass too.
== END 2022-07-13 11:25 | disposition home or self-care (01) ==
LOC: OR 06:02 → AC 06:04
PROVIDERS: Family Provider Family Medicine; PCP Family Medicine; Referring Provider Orthopaedic Surgery; Visit Provider Orthopaedic Surgery
PROC: (CPT 27130; principal; 2022-07-12 07:45)
DX: M16.12 Unilateral primary osteoarthritis, left hip (principal); I10 Essential (primary) hypertension
CPT/HCPCS: 27130; 36415; 73502; 76000; 85014; 85018; 97116; 97162; 97530; C1776; C9290; J0171; J0690; J1170; J2250; J2405; J2704; J3010

== ENCOUNTER → 2024-04-10 11:30 | Outpatient (CLI) | payer MEDICARE, OTHER, SELFPAY ==
[2022-07-12 15:00] VITALS: BMI 21.4
== END ==
PROVIDERS: Family Provider Family Medicine; PCP Family Medicine; Visit Provider Obstetrics & Gynecology
DX: R82.998 Other abnormal findings in urine (principal)
CPT/HCPCS: 87077; 87086; 87147

== ENCOUNTER 2024-07-19 06:36 | Day surgery (SDC) | payer MEDICARE, OTHER, SELFPAY ==
[2022-07-12 15:00] VITALS: BMI 21.4
[2024-07-19] VITALS (13 sets, daily range): BP systolic 110–153; BP diastolic 63–82; PULSE 70–84; RESP 10–18; TEMP 35.7–37.2; O2SAT 93–100; BMI 27.4
--- NOTE | 2024-07-19 07:43 | PM.GYNHP.1 ---
History of Present Illness History of Present Illness Narrative: Kellee Marcial is a 74 year old female who presents for scheduled anterior repair with TVT secondary to symptomatic stage 2 POP refractory to conservative management. Pt affirms desire to proceed with procedure today and has brought her topical estrace cream with her today as instructed. Denies interval changes in personal health history. [facility] Medical History Urinary incontinence concurrent with and due to female genital prolapse Cystocele with prolapse Fitting and adjustment of pessary Osteoarthritis HTN (hypertension) HLD (hyperlipidemia) Encounter for hepatitis C screening test for low risk patient Post-menopausal atrophic vaginitis Breast cancer screening Surgical History (Updated 07/13/22 @ 07:39 by Shey Alfaro PA-C) History of colonoscopy with polypectomy Hx of foot surgery (2017) Hx of foot surgery (2012) Hx of arthroscopy of right knee (2008) History of orthopedic surgery (2004) Hx of foot surgery (1998) Hx of discectomy (1994) Social History household members: spouse Smoking Status: Never smoker alcohol intake: current Meds Home Medications and Allergies Home Medications Medication Instructions Recorded Confirmed Type atorvastatin 10 mg tablet 10 mg PO DAILY 05/26/21 07/19/24 History multivitamin 1 tab PO DAILY 05/26/21 07/19/24 History triamcinolone acetonide 0.1 % 1 applic topical DAILY PRN Skin 05/26/21 07/19/24 History topical ointment Irritation fluorouracil 5 % topical cream 1 applic topical BID 03/20/24 07/19/24 History hydrochlorothiazide 25 mg tablet 25 mg PO DAILY 03/20/24 07/19/24 History valsartan 80 mg tablet 80 mg PO DAILY 03/20/24 07/19/24 History estradiol 0.01% (0.1 mg/gram) 1 appful vaginal DAILY #42.5 grams 03/25/24 07/19/24 Rx vaginal cream (Estrace) Allergies Allergy/AdvReac Type Severity Reaction Status Date / Time nickel Allergy Intermediate Rash with Verified 07/19/24 06:56 earrings, reaction to surgical sofia acyclovir AdvReac Mild Headache Verified 07/19/24 06:56 Review of Systems Review of Systems ROS: Yes All systems reviewed with the patient and are negative except as otherwise documented Exam Vital Signs (past 8 hours): - 07/19/24 07:01 Temperature 97.6 F Pulse Rate 78 Respiratory Rate 17 Blood Pressure 153/82 H Pulse Oximetry 98 Oxygen Delivery Method Room Air Oxygen Delivery Method Room Air Const General: cooperative HENMT Head: normal to inspection Neck Neck: normal visual inspection Resp Effort & Inspection: normal respiratory effort GI Inspection: normal to inspection Other: deferred Skin General: no rashes or lesions noted Neuro General: patient alert, patient awake and patient oriented x3 Extrem General: normal to inspection Psych Mental Status: mental status grossly normal Judgment: judgment good Assessment & Plan Assessment and plan (1) Urinary incontinence concurrent with and due to female genital prolapse: Status: Acute Plan proceed to OR as scheduled Time-Based Coding :: [TOTAL MINUTES] spent with patient and on the chart (including review of chart, obtaining history, exam, reviewing outside data, placing orders, documenting exam and treatment plan, and counseling patient) on [DATE].
--- NOTE | 2024-07-19 07:46 | PM.PREOP ---
Pre-operative Note Interval Note History & Physical reviewed/Exam performed by Physician: No Changes to H&P: No ASA Class (for procedural sedation): II
[2024-07-19] MEDS: CEFAZOLIN 2 GM/100 ML PREMIX 100 ML IV (07:59)
[2024-07-19] MEDS: BUPIVACAINE 0.5% (PF) 30 ML, EPINEPHrine 0.15 MG INJ (08:28)
--- NOTE | 2024-07-19 08:40 | SUR.OPER ---
Lithotomy on padded OR bed. [place] Pad Positioner under torso. Head on pillow, arms padded on armboards less than 90 degrees abduction. Legs secured in padded yellow fins stirrups.
[2024-07-19] MEDS: ACETAMINOPHEN IV 1,000 MG/100 ML VIAL 400 MG IV (08:51)
[2024-07-19] MEDS: LACTATED RINGERS 1,000 ML 42 ML IV (09:35)
--- NOTE | 2024-07-19 10:01 | P.OP_ITS ---
Operative Date/Time/Diagnoses Date of procedure: 07/19/24 Time of procedure: 10:01 Pre-op diagnosis: symptomatic stage 2 POP Post-op diagnosis: same Procedure & Clinicians Procedure: Anterior repair with TVT, cystoscopy Same procedure as scheduled: Yes Indications: symptomatic stage 2 POP with stress urinary incontinence, refractory to cons ervative (pessary) management Surgeon: Kristin John Software Engineer Intern: Hallie Benitez Anesthesia Type: General Operative Notes Findings: severe anterior vaginal prolapse without uterine or cervical descent, moderate posterior defect without prolapse, normal appearing cervix, hypermobile urethra Closure Type: primary Specimen(s): none sent Applied: catheter Estimated Blood Loss (mL): 50 Blood products transfused: none Procedure in detail: Pt was taken to the operating room, transferred to OR table and anesthesia was induced with placement of ETT.? Pt had her legs placed in Petar stirrups and an exam under anesthesia was performed. The patient was prepped and draped in a sterile fashion.? A time out was performed.? A dior catheter was placed for urinary diversion and clamped laterally away from the surgical field. A sterile weighted speculum was then placed in the vagina with easy visualization of the cervicouterine reflection. Using the cervicouterine reflection as a landmark for the vaginal apex the anterior vaginal mucosa was infiltrated with 10cc 0.25% lidocaine with epinephrine for purposes of hydro-dissection coupled with local hemostasis.? The vaginal mucosa was incised in the midline from the cervicouterine reflection to the UV angle.? The vaginal mucosa was sharply dissected off of the endopelvic fascia to the sidewall.? The pubourethral fascia at the UV angle was identified and a Promise plication was performed with serial interruptued 2-0 vicryl suture.? The anterior endopelvic fascia adjacent to the pelvic sidewall was serially plicated with 2-0 vicryl in a distal to proximal fashion with noted excellent elevation of the bladder.? The observed reduction of cystocele the excess vaginal mucosa was trimmed, after which the incision was closed primarily with 2-0 vicryl in a running locked fashion. The mid urethra identified visually and by palpation. The vaginal mucosa underlying the mid urethra was then infiltrated with 0.25% Marcaine with epinephrine and a 1.5 cm longitudinal incision under the mid urethra was made u sing a scalpel. The dissection was then extended on both the right and left side so as to create a tunnel to the retro pubis. A total of 100cc sterile water was injected into the space of retzius bilaterally and midline transabdominally via 20g spinal needle for purposes of hydrodissection. Once sufficient mobilization had been achieved, a stylet was placed via the dior catheter for purposes of m obilization of the bladder neck. With the bladder neck laterally displaced the retropubic tension-free TVT was placed 1st on the patient's right and then the left. The needles were brought up through the skin of the suprapubic area and the Dior catheter removed temporarily. Cystoscopy was performed using the 70 degree cystoscope and showed no injury to the bladder and active jets of urine coming from each ureteral orifice. The TVT in its sheath was then brought up through the anterior abdominal wall and appropriately tensioned before removal of the sheath. The TVT was then trimmed and its proper with. The vaginal mucosal incision underlying the mid urethra was then closed with 3-0 Vicryl in a running interlocking stitch. Hemostasis was noted and vaginal packing instilled with topical estrace cream was placed into the vagina. All counts were correct x2. Patient was extubated and taken to PACU in stable condition without complication. Complications: none Post-operative Condition: stable Disposition: Acute Care Plan for aftercare: anticipate dc to home POD1 pending clinical course
[2024-07-19] MEDS: hydroCHLOROthiazide 25 MG TABLET PO (12:03)
--- NOTE | 2024-07-19 12:07 | PC.NURSE ---
Addendum entered by Bárbara Steiner R.N. 07/19/24 12:10: Leon present and draining clear yellow urine. Original Note: Pt arrived from PACU at 1040, A&Ox4, c/o 11/29 pain, no pain meds needed at this time. 2 puncture sites on lower abdomen EVELYN but closed with dermabond, peripad to vaginal area clean. VSS on RA. Lungs CTA, bowel sounds hypoactive. Pt oriented to room and call light. Bed in low position, call light within reach, SCDs on.
[2024-07-19] MEDS: ACETAMINOPHEN 325 MG TABLET 650 MG PO ×2 (13:28→19:40)
[2024-07-19 16:40] LABS: BUN Creatinine Ratio 24.6 (6-22); Blood Urea Nitrogen 14 mg/dL (7-17); Calcium 8.8 mg/dL (8.4-10.2); Carbon Dioxide 28 mmol/L (22-32); Chloride 102 mmol/L (98-107); Estimated Glomerular Filt Rate > 60 mL/min (>60); Glucose 137 mg/dL (80-110); HEMOLYSIS < 15 (0-50); Sodium 138 mmol/L (137-145)
[2024-07-19] MEDS: KETOROLAC 30 MG/ML VIAL IV ×2 (17:21→23:59)
[2024-07-19] MEDS: VALSARTAN 80 MG TABLET PO (20:19)
[2024-07-19] MEDS: ATORVASTATIN 20 MG TABLET 10 MG PO (20:19)
--- NOTE | 2024-07-19 21:55 | PC.NURSE ---
Addendum entered by Jeannette Marie R.N. 07/20/24 06:48: 0600: Leon catheter d/c'ed, patient tolerated well. Original Note: NOC: 2130: Pt ambulated with SBA/FWW from bed to end of [facility] and back, tolerated well other than increased pain when transitioning (sitting, standing). Care continues.
[2024-07-20 03:00] VITALS: BP 113/63; PULSE 71; RESP 18; TEMP 37.3; O2SAT 97
[2024-07-20 05:09] LABS: Add Manual Diff / Slide Review NO; Basophils Absolute Auto 100 /uL (0-100); Basophils Percent Auto 0.5 % (0-2); Eosinophils Absolute Auto 0 /uL (0-450); Eosinophils Percent Auto 0.1 % (2-4); Hematocrit 37.3 % (36-46); Hemoglobin 12.5 g/dL (12.0-16.0); Lymphocytes Absolute Auto 1500 /uL (1100-4500); Lymphocytes Percent Auto 12.8 % (25-40); Mean Corpuscular HGB Conc 33.5 % (30-36); Mean Corpuscular Hemoglobin 30.1 PG (26-34); Monocytes Absolute Auto 700 /uL (0-900); Monocytes Percent Auto 5.6 % (3-14); Neutrophils Absolute Auto 9700 /uL (1500-7000); Platelet Count 187 X10^3/uL (150-400); Red Blood Cell Count 4.15 X10^6/uL (4.0-5.2); Red Cell Distribution Width 13.9 % (11.6-14.8)
[2024-07-20] MEDS: KETOROLAC 30 MG/ML VIAL IV ×2 (05:28→11:41)
[2024-07-20] MEDS: ACETAMINOPHEN 325 MG TABLET 650 MG PO (06:45)
[2024-07-20 08:00] VITALS: BP 140/77; PULSE 72; RESP 18; TEMP 36.4; O2SAT 97
[2024-07-20] MEDS: hydroCHLOROthiazide 25 MG TABLET PO (09:05)
--- NOTE | 2024-07-20 11:30 | PM.DS.1 ---
History of Present Illness History of Present Illness Date Patient Seen: 07/20/24 Time Patient Seen: 08:30 Date of Onset of Symptoms: 07/19/24 Chief complaint: s/p Anterior repair with TVT Narrative: 74yo postmenopausal female with symptomatic stage 2 POP, admitted to facility 07/19 for scheduled definitive surgical management of same. Discharge Providers Provider Date of admission: 07/19/24 Discharge Date: 07/20/24 Primary care physician: Josie Elizondo MD Discharge provider: Kristin John MD Summary Hospital Course Discharge Diagnosis: s/p anterior repair with TVT Hospital Course: 74yo postmenopausal female with symptomatic stage 2 POP, admitted to facility 07/19 for scheduled definitive surgical management of same. Pt underwent anterior vaginal repair with placement of mid-urethral TVT without complication. Urinary dior was discontinued morning of POD1 and vaginal packing was removed by MD provider at time of morning rounds. Patient was able to void spontaneously and pain was adequately controlled with minimal PO analgesia. Meeting all discharge milestones patient was discharged to home on POD1 with scheduled routine postoperative f/u in office. Exam Vital Signs (past 8 hours): - 07/20/24 08:00 Temperature 97.6 F Pulse Rate 72 Respiratory Rate 18 Blood Pressure 140/77 Pulse Oximetry 97 Oxygen Delivery Method Room Air Oxygen Flow Rate 0 Const General: cooperative and comfortable Nutritional Appearance: average body habitus Orientation: alert, awake and oriented x3 Limitations: mental status not altered Resp Effort & Inspection: normal respiratory effort GI Inspection: normal to inspection Other: mons pubis incisions c/d/i with dermabond in place Other: vaginal packing removed, ~30% saturated without active bleeding Skin General: no rashes or lesions noted Neuro General: patient alert, patient awake and patient oriented x3 Extrem General: normal to inspection Psych Mental Status: mental status grossly normal Judgment: judgment good Objective Labs 07/20/24 05:00 07/19/24 16:21 Labs: Laboratory Results - last 24 hr 07/19/24 07/20/24 16:21 05:00 WBC 12.0 H RBC 4.15 Hgb 12.5 Hct 37.3 MCV 90.0 MCH 30.1 MCHC 33.5 RDW 13.9 Plt Count 187 Neut % (Auto) 81.0 H Lymph % (Auto) 12.8 L [place] % (Auto) 5.6 Eos % (Auto) 0.1 L Baso % (Auto) 0.5 Neut # (Auto) 9700 H Lymph # (Auto) 1500 [place] # (Auto) 700 Eos # (Auto) 0 Baso # (Auto) 100 Sodium 138 Potassium 4.0 Chloride 102 Carbon Dioxide 28 BUN 14 Creatinine 0.57 Estimated GFR > 60 BUN/Creatinine Ratio 24.6 H Glucose 137 H Calcium 8.8 PFSH Medical History Urinary incontinence concurrent with and due to female genital prolapse Cystocele with prolapse Fitting and adjustment of pessary Osteoarthritis HTN (hypertension) HLD (hyperlipidemia) Encounter for hepatitis C screening test for low risk patient Post-menopausal atrophic vaginitis Breast cancer screening Surgical History (Updated 07/13/22 @ 07:39 by Shey Alfaro PA-C) History of colonoscopy with polypectomy Hx of foot surgery (2017) Hx of foot surgery (2012) Hx of arthroscopy of right knee (2008) History of orthopedic surgery (2004) Hx of foot surgery (1998) Hx of discectomy (1994) Social History household members: spouse Smoking Status: Never smoker alcohol intake: current Discharge Assessment & Plan Assessment and Plan Assessment: 74yo postmenopausal female, POD1 s/p anterior repair with TVT for definitive surgical management of symptomatic stage 2 POP Plan of Treatment: dc to home routine postoperative precautions reviewed routine postop f/u in office as scheduled Discharge Plan Discharge Plan Patient Disposition: Home Provider Discharge Comment: Nothing in the vagina for 6 weeks. No tampons, intercourse, swimming in fresh water/pools/hot tubs. Tub baths are okay if the tub is cleaned well first. No heavy lifting >10lbs until cleared by your physician. Discharge orders & Medications Discharge Orders: Discharge (Order); Ordered 07/20/24 Ordered By: Kristin John Prescriptions: New acetaminophen 325 mg Tablet 650 mg PO Q6H Qty: 30 0RF ibuprofen 600 mg Tablet 600 mg PO Q6H 7 Days Qty: 30 0RF oxycodone 5 mg Tablet 5 mg PO Q4HR PRN (Reason: Pain, Moderate (4-6)) Qty: 10 0RF Continued estradiol [Estrace] 0.01 % (0.1 mg/gram) cream 1 appful vaginal DAILY Qty: 42.5 3RF Rx Instructions: apply 1.5cm cream (1g) to area as direct by your doctor nightly for 7 days, then decrease frequency to 2 times weekly thereafter multivitamin Tablet 1 tab PO DAILY triamcinolone acetonide 0.1 % ointment 1 applic topical DAILY PRN (Reason: Skin Irritation) atorvastatin 10 mg tablet 10 mg PO DAILY hydrochlorothiazide 25 mg tablet 25 mg PO DAILY valsartan 80 mg tablet 80 mg PO DAILY fluorouracil 5 % cream 1 applic topical BID Follow up/Referrals: Josie Elizondo MD [Primary Care Provider] - Diet/Activity/Treatments Diet: Regular Activity: as tolerated Skin/Wound/Dressing Care Report to your healthcare provider any signs of infection, such as:: chills, fever, increased pain and unusual drainage Visit Report/Discharge Packet Stand Alone Forms: Patient Portal/API Discharge Data Primary Care Provider: Josie Elizondo Attending Provider: Kristin John
--- NOTE | 2024-07-20 12:50 | CM.DANOTE ---
Patient is a 74 yo female who was admitted on 07/19/24 for Prolapse Repair. Pt has [employer] and [employer] for insurance and her PCP is Carolina Perez. EMR was reviewed. Per OBGYN, pt tolerated procedure well, pain controlled, dior discontinued, packing removed and has been ambulating the halls and just voided independently and medically stable to discharge home today with outpt f/u. SW met bedside with pt and her friend and she confirms that she lives at home on [facility] with her and has very supportive local friends. Pt is active and independent at baseline, does not use DME for ambulation, drives and denies any hx of HH or SNF. Pt's friend confirms she can provide transport today back to [facility]. Pt and friend requesting Priority Boarding Pass as no ability to make reservation on day of discharge, holiday weekend, and today is a Monday and pt has visible discomfort with sitting due to her surgery. Priority Boarding Pass completed and copy provided to pt and friend. SHELLEY updated RN that plan is to d/c a little after lunchtime around 1230 [place] if not sooner. Discharge instructions provided and pt aware of medications efaxed to [facility] and they will cotton picker on their way to [place]. Plan: patient to discharge home today via friend POV back to [facility] with Boarding Pass and outpt f/u with OBGYN. JOB Briceño Discharge Planning/Care Management CM Discharge Assessment Start: 07/20/24 12:42 Freq: Status: Active Protocol: Document 07/20/24 12:42 BF (Rec: 07/20/24 12:50 BF [id number]) Discharge Planning Assessment Assigned Specialty Development Consultant JOB Espinoza DPOA/Assigned Designee Name isidoro Newman Advance Directives? Yes Advance Directives on File No History Provided By Patient,Friend,Medical Record Has Patient been admitted in last 30 No days? Prior Living Arrangements House Household Members spouse Type of transporation used prior to Drives own vehicle admit Independent with ADL's Yes Is patient alert and oriented? Yes Caregiver for Another No Barriers to Discharge No Discharge Plan Home Transportation Arrangement friend bedside and will transport Referrals Initiated None needed,Other Additional Comment Priority board pass completed Whiteboard Updated in Patient Room with Yes name and ext. # of Specialty Development Consultant Review Status In Process Please Provide Date Initial DC 07/20/24 Assessment Was Performed Next Review Type Continued Stay Review Pre-Anesthesia Assessment Start: 07/17/24 14:08 Freq: Status: Active Protocol: Document 07/17/24 14:08 LB (Rec: 07/17/24 14:17 LB [id number]) Pre-Anesthesia Assessment PAC Comment 07/17/24 chart review only. Patient Information Reviewed Via Chart Review Diagnostic Results Urinalysis Comment 04/10/24 at . Primary Care Provider Josie Elizondo Medical Clearance Received Not Applicable Specialist Seen Jordan Man Preferred Language Greenlandic Hx Anesthesia Reactions Yes: PONV, foggy p surgery with some surgeries Hx Family Anesthesia Reaction No Hx Malignant Hyperthermia No Hx Blood Transfusions No Anesthesia Review Requested No Regional Account Director No alcohol intake current alcohol intake frequency holidays/special occasions only Smoking Status Never smoker Substance Use Type does not use Mental Status Oriented to own ability Is patient on oxygen? No Does patient have TERAN/SOB No Hx Sleep Apnea No Currently Taking a Beta Andreas No Cardiac Testing No Hx Pacemaker/ICD No Cardiac Clearance Received Not Applicable Bladder Pattern Incontinent Urinary Catheter Present No Hx Urinary Self Catheterization No Diabetes No Patient No Lactating No Hx Drug Resistant Organism No Presence of External or Internal Medical Yes: Pinning to left foot toe Devices Received a COVID vaccine? Yes Marital Status Lives With spouse Patient Discharge Plan Description Return Home Do You Have Any Spiritual Beliefs That No May Affect Your HC Choices? Do You Have Any Cultural Practices That No May Affect Your HC Choices? Emergency Contact Name [place] () Emergency Contact Advance Directives? No Advance Directives on File No Power of Burglary Investigator No
--- NOTE | 2024-07-20 13:10 | PC.NURSE ---
patient d/c teaching done at bedside. Discussion of precautions to be followed post-op, pt states understanding. Aware of medications sent to pharm. Priority loading slip given by care management staff. Patient is stable condition, VSS, states she wishes to walk to private vehicle.
== END 2024-07-20 13:00 | disposition home or self-care (01) ==
LOC: OR 06:38 → AC 06:52
PROVIDERS: Family Provider Family Medicine; PCP Family Medicine; Referring Provider Obstetrics & Gynecology; Visit Provider Obstetrics & Gynecology
PROC: (CPT 57288; principal; 2024-07-19 07:45)
PROC: 0TSD0ZZ Reposition Urethra, Open Approach (ICD-10-PCS; CPT 57288; 2024-07-19 07:45)
DX: N81.10 Cystocele, unspecified (principal); N39.3 Stress incontinence (female) (male)
CPT/HCPCS: 57288; 57240; 36415; 80048; 85025; C1771; J0136; J0171; J0330; J0690; J1100; J1885; J2405; J2704; J3010; J3490

== ENCOUNTER → 2024-07-25 09:50 | Outpatient (CLI) | payer MEDICARE, OTHER, SELFPAY ==
[2024-07-19 06:55] VITALS: BMI 27.4
--- NOTE | 2024-07-25 09:51 | DI.CT.S_ITS ---
PROCEDURE: CT ABDOMEN PELVIS W CON INDICATIONS: Post op pelvic pain TECHNIQUE: After the administration of intravenous contrast, axial sections acquired from the lung bases to the pubic symphysis. Coronal and sagittal reformats were performed. For radiation dose reduction, the following was used: automated exposure control, adjustment of mA and/or kV according to patient size. COMPARISON: None. FINDINGS: Image quality: Portions of the lower pelvis are suboptimally evaluated secondary to metallic streak artifact from hip arthroplasty. Lower Chest: No significant findings. ABDOMEN: Liver: No solid mass. Gallbladder: No radiopaque gallstones or wall thickening. Biliary ducts: No biliary dilation. Pancreas: No ductal dilation. Spleen: Size is within normal limits. Adrenal Glands: No adrenal nodules. Kidneys and Ureters: No hydronephrosis. No solid mass. No complex renal cystic lesion which requires follow up. Stomach and Bowel: Normal colonic caliber, without significant wall thickening. Peritoneum: No abnormal intraperitoneal fluid. No free air. Ventral Wall: No significant ventral hernia. Abdominal Nodes: No retroperitoneal or mesenteric adenopathy by size criteria. Vessels: Aorta and inferior vena cava are normal in size. PELVIS: Pelvic Organs: No visualized inflammatory change or hematoma within specifically the labial region status post TVT procedure. Bladder: Leon catheter is present and bladder is collapsed. Non dependent air is present suspected to be related to Leon catheter placement. Pelvic Nodes: No enlarged lymph nodes. Miscellaneous: No inguinal hernias are seen. Bones: No aggressive osseous abnormality. IMPRESSION: No visualized intra-abdominal or pelvic inflammatory change. No visualized hematoma or abscess. Dictated by: Elizabeth Hunt M.D. on 07/25/2024 at 13:20 Approved by: Elizabeth Hunt M.D. on 07/25/2024 at 13:39
== END ==
PROVIDERS: Family Provider Family Medicine; PCP Family Medicine; Referring Provider Obstetrics & Gynecology; Visit Provider Obstetrics & Gynecology
DX: N32.89 Other specified disorders of bladder (principal); G89.18 Other acute postprocedural pain; Z96.649 Presence of unspecified artificial hip joint; Z96.0 Presence of urogenital implants
CPT/HCPCS: 74177; Q9967

== ENCOUNTER → 2024-08-07 09:54 | Outpatient (CLI) | payer MEDICARE, OTHER, SELFPAY ==
[2024-07-19 06:55] VITALS: BMI 27.4
[2024-08-07 10:16] LABS: Add Manual Diff / Slide Review NO; Basophils Absolute Auto 100 /uL (0-100); Basophils Percent Auto 1.3 % (0-2); Eosinophils Absolute Auto 300 /uL (0-450); Eosinophils Percent Auto 5.7 % (2-4); Hematocrit 39.7 % (36-46); Hemoglobin 13.7 g/dL (12.0-16.0); Lymphocytes Absolute Auto 1900 /uL (1100-4500); Lymphocytes Percent Auto 34.8 % (25-40); Mean Corpuscular HGB Conc 34.6 % (30-36); Mean Corpuscular Hemoglobin 31.2 PG (26-34); Mean Corpuscular Volume 90.3 fL (80-100); Monocytes Absolute Auto 500 /uL (0-900); Monocytes Percent Auto 8.6 % (3-14); Neutrophils Absolute Auto 2700 /uL (1500-7000); Neutrophils Percent Auto 49.6 % (50-75); Platelet Count 235 X10^3/uL (150-400); Red Cell Distribution Width 13.8 % (11.6-14.8); White Blood Cell Count 5.5 X10^3/uL (4.5-11.0)
[2024-08-07 10:44] LABS: Alanine Aminotransferase 26 IU/L (<35); Albumin 4.1 g/dL (3.5-5.0); Albumin Globulin Ratio 1.4 (1.0-2.8); Alkaline Phosphatase 59 U/L (38-126); Aspartate Aminotransferase 36 IU/L (14-36); BUN Creatinine Ratio 31.9 (6-22); Bilirubin Total 0.8 mg/dL (0.2-1.3); Blood Urea Nitrogen 22 mg/dL (7-17); Calcium 9.2 mg/dL (8.4-10.2); Carbon Dioxide 33 mmol/L (22-32); Chloride 102 mmol/L (98-107); Estimated Glomerular Filt Rate > 60 mL/min (>60); Glucose 96 mg/dL (80-110); HEMOLYSIS < 15 (0-50); Potassium 3.9 mmol/L (3.4-5.1); Sodium 140 mmol/L (137-145); Total Protein 7.1 g/dL (6.3-8.2)
== END ==
PROVIDERS: Family Provider Family Medicine; PCP Family Medicine; Referring Provider Obstetrics & Gynecology; Visit Provider Obstetrics & Gynecology
DX: R53.83 Other fatigue (principal)
CPT/HCPCS: 36415; 80053; 85025